=== PATIENT | male | born 1935 | race Caucasian/White ===

== ENCOUNTER 2020-05-11 10:54 | Outpatient (CLI) | payer MEDICARE ==
[2020-05-12 01:24] LABS: SARS-CoV-2 PCR by NAA Not Detected (NotDetected)
== END 2020-05-11 10:55 | disposition home or self-care (01) ==
LOC: LABBT 10:54
PROVIDERS: ATTEND Internal Medicine
DX: Z01.812 Encounter for preprocedural laboratory examination (principal); Z20.822 Contact with and (suspected) exposure to COVID-19
CPT/HCPCS: U0003; U0005; 87635

== ENCOUNTER 2020-05-14 13:14 | Outpatient (CLI) | payer MEDICARE | END 2020-05-14 13:15 | disposition home or self-care (01) | PROVIDERS: ATTEND Internal Medicine | DX: R13.13 Dysphagia, pharyngeal phase (principal) | CPT/HCPCS: 74230 ==